=== PATIENT | male | born 1985 | race Two or more races ===

== ENCOUNTER 2023-09-11 20:33 | Emergency (ER) | payer MEDICAID ==
[~2023-09-11] VITALS: Ht 167.6 cm; Wt 94.5 kg
[2023-09-12] MEDS ORDERED: CEPH500C PO (00:59)
[2023-09-12 01:18] VITALS: BP 112/70; PULSE 102; RESP 18; TEMP 98.6; O2SAT 95
== END 2023-09-12 01:21 | disposition home or self-care (01) ==
LOC: ER 20:33
DX: L02.212 Cutaneous abscess of back [any part, except buttock and flank] (principal)
CPT/HCPCS: 10060

== ENCOUNTER 2024-07-28 21:26 | Emergency (ER) | payer MEDICAID ==
[~2024-07-28] VITALS: Ht 170.2 cm; Wt 87.0 kg
[~2024-07-28 21:26] MED LIST: CEPH500C PO
--- NOTE | 2024-07-28 22:07 | DVH ---
CLINICAL INDICATION: Pain s/p fall TECHNIQUE: XY L ELBOW 3 VIEW XRAY Comparison: None FINDINGS: No osseous or joint abnormality identified with no evidence of joint effusion, fracture, or dislocati on. IMPRESSION: No abnormality demonstrated.
[2024-07-28 23:00] VITALS: BP 110/72; PULSE 84; RESP 19; TEMP 97.9; O2SAT 96
[2024-07-28] MEDS ORDERED: IBUP-1456 PO (23:37)
--- NOTE | 2024-07-28 23:38 | ED.PDOC ---
Musculoskeletal HPI Comments 39-year-old male presents to ER with complaints of left elbow pain x1 hour. Patient reports that he fell down two steps of a step stool and landed on his left elbow onto dirt ground 1 hour prior to arrival to ER and has since been experiencing pain/swelling to left elbow. Denies head injury/LOC. He rates his current pain a 9/10 to left elbow without radiation. Denies use of medications for current symptoms. Patient presents to ER ambulatory on arrival, with steady gait, in no distress. Denies left shoulder pain, numbness/tingling, left forearm pain, left wrist pain, left hand pain or any further symptoms/complaints Chief Complaint: Upper Extremity Time Seen by MD: 21:44 Primary Care Provider: UNKNOWN Reviewed Notes: Nurses Notes, Medications, Allergies Allergies: Coded Allergies: NO KNOWN ALLERGIES (Unverified , 09/11/23) Home Meds Active Scripts Ibuprofen (Ibuprofen) 800 Mg Tab, 1 TAB PO TID PRN, #30 TAB 0 Refills Prov:NOELLE NEGRETE 07/28/24 Cephalexin Monohydrate (Cephalexin) 500 Mg Cap, 1 CAP PO QID for 5 Days, #20 CAP Prov:OTONIEL VALENZUELA PAC 09/12/23 Information Source: Patient Mode of Arrival: Ambulatory Past Medical History PAST MEDICAL HISTORY: Denies Surgical History: Denies all surgeries Family History Family History: Unknown Social History Smoker: Non-Smoker Alcohol: Denies ETOH Use Drugs: Denies Drug Use Lives In: Home Constitutional: denies: chills, diaphoresis, fatigue, fever, malaise, sweats, weakness, others EENTM: denies: blurred vision, double vision, ear bleeding, ear discharge, ear drainage, ear pain, ear ringing, eye pain, eye redness, hearing loss, mouth pain, mouth swelling, nasal discharge, nose bleeding, nose congestion, nose pain, photophobia, tearing, throat pain, throat swelling, voice changes, others Respiratory: denies: cough, hemoptysis, orthopnea, SOB at rest, shortness of breath, SOB with excertion, stridor, wheezing, others Cardiovascular: denies: chest pain, dizzy spells, diaphoresis, Dyspnea on exertion, edema, irregular heart beat, left arm pain, lightheadedness, palpitations, PND, syncope, others Gastrointestinal: denies: abdomen distended, abdominal pain, blood streaked bowels, constipated, diarrhea, dysphagia, difficulty swallowing, hematemesis, melena, nausea, poor appetite, poor fluid intake, rectal bleeding, rectal pain, vomiting, others Genitourinary: denies: burning, dysuria, flank pain, frequency, hematuria, incontinence, penile discharge, penile sore, pain, testicle pain, testicle swelling, urgency, others Neurological: denies: dizziness, fainting, headache, left sided numbness, left sided weakness, numbness, paresthesia, pre-existing deficit, right sided numbness, right sided weakness, seizure, speech problems, tingling, tremors, weakness, others Musculoskeletal: reports: others (As stated in HPI) Integumetry: reports: others (As stated in HPI) Allergic/Immunocompromised: denies: Difficulty Healing, Frequent Infections, Hives, Itching, others Hematologic/Lymphatic: denies: anemia, blood clots, easy bleeding, easy bruising, swollen glands, others Endocrine: denies: excessive hunger, excessive sweating, excessive thirst, excessive urination, flushing, intolerance to cold, intolerance to heat, une xplained weight gain, unexplained weight loss, others Psychiatric: denies: anxiety, bipolar disorder, depression, hopeless, panic disorder, schizophrenia, sleepless, suicidal, others Physical Exam General Appearance: No Apparent Distress HEENT: PERRL/EOMI, TMs Normal Neck: Full Range of Motion, Non-Tender, Normal Respiratory: Chest Non-Tender, Lungs Clear, No Accessory Muscle Use, No Res piratory Distress, Normal Breath Sounds Cardiovascular: No Murmur, No Gallop, Regular Rate/Rhythm Breast Exam: Deferred Gastrointestinal: NOT DONE Genitalia: Deferred Pelvic: Deferred Rectal: Deferred Extremities: Normal capillary refill, Normal range of motion Musculoskeletal : Extremity Location: Elbow (TTP/slight swelling to left elbow noted. No deformity/further skin changes noted. Patient able to fully move the left elbow. No other TTP to left arm noted. Pulses intact) Neurologic: Alert, No Motor Deficits, Normal Affect, Normal Mood, No Sensory Deficits Cerebellar Function: Normal Reflexes: Normal Skin: Dry, Normal Color, Warm Peripheral Pulses: 2+ carotid (R), 2+ carotid (L), 2+ Radial (R), 2+ Radial (L), 2+ Brachial (R), 2+ Brachial (L) Lymphatic: No Adenopathy Was a procedure done? Was a procedure done?: No Sedation Sedation?: No Differential Diagnosis EXT Differential Diagnosis: Fracture, Dislocation, Laceration, Neurovascular injury X-Ray, Labs, Meds, VS Vital Signs Date Time Temp Pulse Resp B/P (MAP) Pulse Ox O2 Delivery O2 Flow Rate FiO2 07/28/24 23:00 84 19 96 Room Air 07/28/24 23:00 97.9 84 19 110/72 (85) 96 97.9 07/28/24 21:33 97.7 97 15 114/71 (85) 96 97.7 PATIENT: CATALINA YUOACCT: [id number]: [id number] : 1985 LOC: ER ROOM / BED: / AGE / SEX: 39 / M ADM STATUS: REG ER SERVICE 32 ORDERING PHYSICIAN: NOELLE NEGRETE PROCEDURE(s): LELB3 - L ELBOW 3 VIEW XRAY REASON: Pain s/p fall ORDER NUMBER(s): [id number], ACCESSION NUMBER(s): [id number] CLINICAL INDICATION: Pain s/p fall TECHNIQUE: XY L ELBOW 3 VIEW XRAY Comparison: None FINDINGS: No osseous or joint abnormality identified with no evidence of joint effusion, fracture, or dislocation. IMPRESSION: No abnormality demonstrated. ATED BY: VINCE MAK MD DICTATED DATE/TIME: 07/28/242203 SIGNED BY: VINCE MAK MD SIGNED DATE/TIME: 07/28/242203 CC: Left elbow x-ray reviewed Patient neurovascularly intact Advised on rest/no strenuous activity, elevation and alternate ice on/off as needed for pain/swelling Advised to follow up with PCP in 1-2 days Patient verbalized understanding and agreeable with current plan of care Advised to return to ER immediately if symptoms worsen Images Reviewed?: Images reviewed and evaluated by me Time of 1ST Reevaluation: 23:12 Reevaluation 1ST: N/A Patient Education/Counseling: Diagnosis, Treatment, Prognosis, Need For Follow Up Family Education/Counseling: No Family Present Departure 1 Departure Time of Disposition: 23:32 Impression: Primary Impression: Contusion of elbow, left Qualified Codes: S50.02XA - Contusion of left elbow, initial encounter Disposition: HOME / SELF CARE / HOMELESS Condition: Stable e-Prescriptions Ibuprofen (Ibuprofen) 800 Mg Tab 1 TAB PO TID PRN, #30 TAB 0 Refills Prov: NOELLE NEGRETE 07/28/24 Discharged With: Self Critical Care Note Critical Care Time?: No Stability Stability form required: No Heart Score Heart Score: Heart Score Response (Comments) Value History N/A 0 EKG N/A 0 Age N/A 0 Risk Factors N/A 0 Troponin N/A 0 Total 0 NOELLE NEGRETE Jul 28, 2024 23:38
== END 2024-07-28 23:43 | disposition home or self-care (01) ==
LOC: ER 21:28
DX: S50.02XA Contusion of left elbow, initial encounter (principal); W10.9XXA Fall (on) (from) unspecified stairs and steps, initial encounter; Y93.89 Activity, other specified; Y92.89 Other specified places as the place of occurrence of the external cause; Y99.8 Other external cause status
CPT/HCPCS: 73080